=== PATIENT | male | born 1945 | race American Indian/Alaskan Native ===

== ENCOUNTER 2017-10-01 18:57 | Emergency (ER) | payer MEDICARE ==
--- NOTE | 2017-10-01 20:29 | Emergency Department Report ---
ED Fall HPI - General Chief Complaint: Fall Stated Complaint: FALL Time Seen by Provider: 10/01/17 20:22 Source: EMS, old records reviewed Mode of arrival: Stretcher - History of Present Illness Initial Comments: Patient is 71 years old male, [facility] patient with history of dementia, CVA , diabetes and seizure. [facility] from the [facility] for evaluation for a fall that happened just prior to admission to the ER. Per [facility] staff patient fell out of a wheelchair and hit his head. Patient denied any loss of consciousness, no other injuries. Patient denied any new weakness numbness or tingling sensation. MD Complaint: fall -: Sudden Fall From: wheelchair When Fall Occurred: just prior to arrival Fall Witnessed: yes, by living facility s Place Fall Occurred: [facility] Loss of Consciousness: none Prolonged Down Time?: no Symptoms Prior to Fall: none Location: head Severity scale (0 -10): 3 Quality: dull Context: tripped/slipped Associated Symptoms: denies. denies: headache, neck pain, numbness, weakness, chest paint, shortness of breath, abdominal pain, hematuria, unable to walk, lightheaded, vertigo, confusion, other - Related Data Home Medications Medication Instructions Recorded Confirmed Last Taken Haloperidol 5 mg PO QDAY 09/06/14 10/01/17 Unknown OLANzapine [ZyPREXA] 5 mg PO HS 09/06/14 10/01/17 Unknown ALBUTEROL NEB's [Proventil 0.083% 2.5 mg IH Q6H PRN 08/27/17 10/01/17 Unknown NEBS] Amantadine HCl [Amantadine] 100 mg PO BID 08/27/17 10/01/17 Unknown Aspirin [Aspirin BABY CHEW TAB] 81 mg PO QDAY 08/27/17 10/01/17 Unknown Benazepril HCl [Lotensin] 20 mg PO Q12H 08/27/17 10/01/17 Unknown Calcium Carbonate/Vitamin D3 1 each PO DAILY 08/27/17 10/01/17 Unknown [Calcium 600-Vit D3 400 Tablet] Docusate Sodium [Colace CAP] 100 mg PO BID 08/27/17 10/01/17 Unknown Donepezil [Aricept] 10 mg PO HS 08/27/17 10/01/17 Unknown PHENobarbital [Phenobarbital] 97.2 mg PO QDAY 08/27/17 10/01/17 Unknown Phenytoin Sodium Extended 200 mg PO Q12H 08/27/17 10/01/17 Unknown [Dilantin] Pravastatin Sodium [Pravastatin] 10 mg PO QHS 08/27/17 10/01/17 Unknown Divalproex ER [DepaKOTE ER] 250 mg PO BID 10/01/17 10/01/17 Unknown Insulin Aspart [NovoLOG Flexpen] See Protocol SUB-Q ACHS 10/01/17 10/01/17 Unknown Ipratropium/Albuterol Sulfate 1 ampul IH Q6HR PRN 10/01/17 10/01/17 Unknown [DUONEB *Not for PRN Use*] Previous Rx's Medication Instructions Recorded Last Taken Type Clindamycin [Clindamycin CAP] 300 mg PO QID #28 capsule 09/05/17 Unknown Rx Insulin NPH/Regular [NovoLIN 70/30] 25 unit SUB-Q BIDDIAB units 09/05/17 Unknown Rx Allergies Allergy/AdvReac Type Severity Reaction Status Date / Time SALAMI AdvReac Unknown Uncoded 09/06/14 12:29 ED Review of Systems ROS: Stated complaint: FALL Other details as noted in HPI Comment: All other systems reviewed and negative Constitutional: denies: fever, malaise Eyes: denies: eye pain ENT: denies: ear pain, dental pain Respiratory: denies: cough, orthopnea, shortness of breath, SOB with exertion, SOB at rest, stridor Cardiovascular: denies: chest pain, palpitations, dyspnea on exertion, orthopnea Gastrointestinal: denies: abdominal pain, nausea, vomiting, diarrhea, constipation, hematemesis, melena, hematochezia Genitourinary: denies: urgency, dysuria, frequency, hematuria, discharge Musculoskeletal: denies: joint swelling Neurological: denies: headache, weakness, numbness, paresthesias, confusion ED Past Medical Hx - Past Medical History Previous Medical History?: Yes Hx CVA: Yes Hx Diabetes: Yes (IDDM 12/26/12;) Hx Deep Vein Thrombosis: No Hx GERD: Yes Hx Renal Disease: Yes (acute kidney failure) Hx Seizures: Yes ("CONVULSIONS" 11/06/06;) Hx Dementia: Yes (W/BEHAVIORAL DISTURBANCES 03/10/10;) Additional medical history: Unspecified open wound, left lower leg, long-term use of aspirin, constipation, hypertension, seizures, nicotine dependence, Alzheimer's disease, cellulitis of left lower limb, peripheral vascular disease , hyperlipidemia and Parkinson's disease, - Surgical History Hx Pacemaker: No Hx Internal Defibrillator: No - Social History Smoking Status: Unknown if ever smoked Substance Use Type: None - Medications Home Medications: Home Medications Medication Instructions Recorded Confirmed Last Taken Type Haloperidol 5 mg PO QDAY 09/06/14 10/01/17 Unknown History OLANzapine [ZyPREXA] 5 mg PO HS 09/06/14 10/01/17 Unknown History ALBUTEROL NEB's [Proventil 0.083% 2.5 mg IH Q6H PRN 08/27/17 10/01/17 Unknown History NEBS] Amantadine HCl [Amantadine] 100 mg PO BID 08/27/17 10/01/17 Unknown History Aspirin [Aspirin BABY CHEW TAB] 81 mg PO QDAY 08/27/17 10/01/17 Unknown History Benazepril HCl [Lotensin] 20 mg PO Q12H 08/27/17 10/01/17 Unknown History Calcium Carbonate/Vitamin D3 1 each PO DAILY 08/27/17 10/01/17 Unknown History [Calcium 600-Vit D3 400 Tablet] Docusate Sodium [Colace CAP] 100 mg PO BID 08/27/17 10/01/17 Unknown History Donepezil [Aricept] 10 mg PO HS 08/27/17 10/01/17 Unknown History PHENobarbital [Phenobarbital] 97.2 mg PO QDAY 08/27/17 10/01/17 Unknown History Phenytoin Sodium Extended 200 mg PO Q12H 08/27/17 10/01/17 Unknown History [Dilantin] Pravastatin Sodium [Pravastatin] 10 mg PO QHS 08/27/17 10/01/17 Unknown History Clindamycin [Clindamycin CAP] 300 mg PO QID #28 capsule 09/05/17 10/01/17 Unknown Rx Insulin NPH/Regular [NovoLIN 70/30] 25 unit SUB-Q BIDDIAB units 09/05/17 Unknown Rx Divalproex ER [DepaKOTE ER] 250 mg PO BID 10/01/17 10/01/17 Unknown History Insulin Aspart [NovoLOG Flexpen] See Protocol SUB-Q ACHS 10/01/17 10/01/17 Unknown History Ipratropium/Albuterol Sulfate 1 ampul IH Q6HR PRN 10/01/17 10/01/17 Unknown History [DUONEB *Not for PRN Use*] ED Physical Exam - General Limitations: No Limitations, Other General appearance: alert - Head Head exam: Present: other (abrasion to the forehead) - Eye Eye exam: Present: normal appearance, PERRL - ENT ENT exam: Present: normal exam, normal orophraynx, mucous membranes moist - Neck Neck exam: Present: normal inspection, full ROM. Absent: tenderness, meningismus, lymphadenopathy, thyromegaly - Respiratory Respiratory exam: Present: normal lung sounds bilaterally. Absent: respiratory distress - Cardiovascular Cardiovascular Exam: Present: regular rate, normal rhythm, normal heart sounds - GI/Abdominal GI/Abdominal exam: Present: soft, normal bowel sounds. Absent: distended, tenderness, guarding, rebound, rigid, organomegaly, mass, bruit, pulsatile mass , hernia - Extremities Exam Extremities exam: Present: normal inspection, full ROM, normal capillary refill - Back Exam Back exam: Present: normal inspection, full ROM. Absent: tenderness, CVA tenderness (R), CVA tenderness (L), muscle spasm, paraspinal tenderness, vertebral tenderness - Neurological Exam Neurological exam: Present: alert, oriented X3, CN II-XII intact - Skin Skin exam: Present: warm, intact, normal color ED Course Vital Signs 10/01/17 10/01/17 10/01/17 20:03 20:04 20:05 Temperature 98.4 F Pulse Rate 100 H Respiratory 118 H 18 Rate Blood Pressure Blood Pressure 231/171 [Left] O2 Sat by Pulse 99 96 99 Oximetry 10/01/17 10/01/17 10/01/17 20:06 20:08 20:10 Temperature Pulse Rate 99 H 96 H Respiratory 19 20 Rate Blood Pressure 231/171 129/78 129/78 Blood Pressure [Left] O2 Sat by Pulse 96 95 Oximetry 10/01/17 10/01/17 10/01/17 20:12 20:14 20:16 Temperature Pulse Rate 103 H 97 H 97 H Respiratory 22 20 18 Rate Blood Pressure 129/78 129/78 129/78 Blood Pressure [Left] O2 Sat by Pulse 96 96 95 Oximetry 02/10/01/17 10/01/17 20:18 20:20 20:22 Temperature Pulse Rate 97 H 112 H 98 H Respiratory 19 18 18 Rate Blood Pressure 129/78 129/78 129/78 Blood Pressure [Left] O2 Sat by Pulse 95 96 98 Oximetry 10/01/17 10/01/17 10/01/17 20:24 20:26 20:28 Temperature Pulse Rate 98 H 95 H 96 H Respiratory 18 19 17 Rate Blood Pressure 129/78 129/78 129/78 Blood Pressure [Left] O2 Sat by Pulse 96 95 97 Oximetry 10/01/17 10/01/17 10/01/17 20:30 20:31 20:50 Temperature Pulse Rate 95 H 98 H Respiratory 21 21 Rate Blood Pressure 132/78 132/78 132/78 Blood Pressure [Left] O2 Sat by Pulse 95 97 97 Oximetry 10/01/17 10/01/17 10/01/17 20:52 20:54 20:56 Temperature Pulse Rate Respiratory Rate Blood Pressure 132/78 132/78 132/78 Blood Pressure [Left] O2 Sat by Pulse 96 96 98 Oximetry 10/01/17 10/01/17 10/01/17 20:58 21:00 21:02 Temperature Pulse Rate Respiratory Rate Blood Pressure 132/78 122/82 122/82 Blood Pressure [Left] O2 Sat by Pulse 97 95 97 Oximetry 10/01/17 10/01/17 21:04 21:06 Temperature Pulse Rate Respiratory Rate Blood Pressure 122/82 122/82 Blood Pressure [Left] O2 Sat by Pulse 96 97 Oximetry - Reevaluation(s) Reevaluation #1: 10/01/17 21:54 Patient remained asymptomatic in the ER. Patient still denying any chest pain, headache or shortness of breath. ED Medical Decision Making - Radiology Data Radiology results: report reviewed Referring Physician: GENARO DOHERTY Patient Name: EMMANUEL TABARES Date of : 1945 Sex: Male Report Date: 2017-10-01 Report Status: Finalized Findings [facility] [address] [place] [address] Cat Scan Report Signed Patient: EMMANUEL TABARES MR#: [id number] : 1945 Acct:[id number] Age/Sex: 71 / M ADM Date: 10/01/17 Loc: ED Attending Dr: Ordering Physician: GENARO DOHERTY Date of Service: 10/01/17 Procedure(s): CT head/brain wo con Accession Number(s): [id number] cc: GENARO DOHERTY FINAL REPORT PROCEDURE: CT HEAD/BRAIN WO CON TECHNIQUE: Computerized tomography of the head was performed without contrast material. HISTORY: head injury COMPARISON: No prior studies are available for comparison. FINDINGS: Skull and scalp: Normal. Paranasal sinuses: Mucosal thickening is noted involving the right maxillary sinus.. Ventricles and subarachnoid spaces: Are prominent consistent with cerebral atrophy appropriate for patient's age.. Cerebrum: No evidence of hemorrhage, acute infarction or mass . Cerebellum and brainstem: No evidence of hemorrhage, acute infarction or mass. Vasculature: Normal. Comments: None. IMPRESSION: No acute intracranial abnormality Right maxillary sinusitis. Transcribed By: [facility] Dictated By: STACEY POTTS Electronically Authenticated By: STACEY POTTS Signed Date/Time: 10/01/172130 DD/ 30 TD/TT: 10/01/172130 Critical care attestation.: If time is entered above; I have spent that time in minutes in the direct care of this critically ill patient, excluding procedure time. ED Disposition Clinical Impression: Head injury, Fall Disposition: DC-01 TO HOME OR SELFCARE Is pt being admited?: No Condition: Stable Instructions: Minor Head Injury (ED), Fall Prevention (ED) Referrals: PRIMARY CARE, [Primary Care Provider] - 3-5 Days
--- NOTE | 2017-10-01 21:35 | Cat Scan Report ---
FINAL REPORT PROCEDURE: CT HEAD/BRAIN WO CON TECHNIQUE: Computerized tomography of the head was performed without contrast material. HISTORY: head injury COMPARISON: No prior studies are available for comparison. FINDINGS: Skull and scalp: Normal. Paranasal sinuses: Mucosal thickening is noted involving the right maxillary sinus.. Ventricles and subarachnoid spaces: Are prominent consistent with cerebral atrophy appropriate for patient's age.. Cerebrum: No evidence of hemorrhage, acute infarction or mass . Cerebellum and brainstem: No evidence of hemorrhage, acute infarction or mass. Vasculature: Normal. Comments: None. IMPRESSION: No acute intracranial abnormality Right maxillary sinusitis.
[2017-10-01 22:48] VITALS: BP 144/81
== END 2017-10-01 23:11 | disposition home or self-care (01) ==
LOC: ED 18:57
DX: S09.90XA Unspecified injury of head, initial encounter (principal); E11.9 Type 2 diabetes mellitus without complications; K21.9 Gastro-esophageal reflux disease without esophagitis; W01.198A Fall on same level from slipping, tripping and stumbling with subsequent striking against other object, initial encounter; Y93.89 Activity, other specified; Y92.89 Other specified places as the place of occurrence of the external cause; Y99.8 Other external cause status
CPT/HCPCS: 70450; 99284

== ENCOUNTER 2018-10-17 22:19 | Inpatient (IN) | payer MEDICARE ==
[2018-10-17] MEDS ORDERED: NACL 0.9% 1000 ML 1,000 ML IV ONE (22:37)
--- NOTE | 2018-10-17 22:48 | Emergency Department Report ---
ED Altered Mental Status HPI - General Stated Complaint: AMS Time Seen by Provider: 10/17/18 22:42 - History of Present Illness Initial Comments: Mr. Turpin is a 72-year-old male who presents from [facility] for combative behavior. According to 1013 filled out by longterm staff member, Mr. Turpin was fist fighting, swinging at others. He was threatening to kill persons. Mr. Turpin is unable to give much history due to dementia. He denies any desire to harm himself or others. He "feels good". He denies pain discomfort. Mr. Turpin has a history of dementia, iron deficiency anemia, peripheral vascular disease, Parkinson's disease. Heart failure, conversion disorder with seizures, vitamin deficiency. Full Code EMS administered Haldol, Hydramine and Versed for severe agitation. Medications include Depakote amantadine metformin Colace aspirin calcium vitamin D pentobarbital Nasonex Haldol Remeron donepezil pravastatin Zyprexa and insulin sliding scale Avapro albuterol Complaint: other (agitation combative behavior) -: Gradual, This evening Severity: moderate Consistency of Symptoms: getting worse Context: unknown Associated Symptoms: denies other symptoms Treatments Prior to Arrival: other pre-hosp med (Versed Haldol Benadryl) - Related Data Home Medications Medication Instructions Recorded Confirmed Last Taken Haloperidol 5 mg PO QDAY 09/06/14 10/01/17 Unknown OLANzapine [ZyPREXA] 5 mg PO HS 09/06/14 10/01/17 Unknown ALBUTEROL NEB's [Proventil 0.083% 2.5 mg IH Q6H PRN 08/27/17 10/01/17 Unknown NEBS] Amantadine HCl [Amantadine] 100 mg PO BID 08/27/17 10/01/17 Unknown Aspirin [Aspirin BABY CHEW TAB] 81 mg PO QDAY 08/27/17 10/01/17 Unknown Benazepril HCl [Lotensin] 20 mg PO Q12H 08/27/17 10/01/17 Unknown Calcium Carbonate/Vitamin D3 1 each PO DAILY 08/27/17 10/01/17 Unknown [Calcium 600-Vit D3 400 Tablet] Docusate Sodium [Colace CAP] 100 mg PO BID 08/27/17 10/01/17 Unknown Donepezil [Aricept] 10 mg PO HS 08/27/17 10/01/17 Unknown PHENobarbital [Phenobarbital] 97.2 mg PO QDAY 08/27/17 10/01/17 Unknown Phenytoin Sodium Extended 200 mg PO Q12H 08/27/17 10/01/17 Unknown [Dilantin] Pravastatin Sodium [Pravastatin] 10 mg PO QHS 08/27/17 10/01/17 Unknown Divalproex ER [DepaKOTE ER] 250 mg PO BID 10/01/17 10/01/17 Unknown Insulin Aspart [NovoLOG Flexpen] See Protocol SUB-Q ACHS 10/01/17 10/01/17 Unknown Ipratropium/Albuterol Sulfate 1 ampul IH Q6HR PRN 10/01/17 10/01/17 Unknown [DUONEB *Not for PRN Use*] Previous Rx's Medication Instructions Recorded Last Taken Type Clindamycin [Clindamycin CAP] 300 mg PO QID #28 capsule 09/05/17 Unknown Rx Insulin NPH/Regular [NovoLIN 70/30] 25 unit SUB-Q BIDDIAB units 09/05/17 Unknown Rx Allergies Allergy/AdvReac Type Severity Reaction Status Date / Time SALAMI AdvReac Unknown Uncoded 09/06/14 12:29 ED Review of Systems ROS: Stated complaint: AMS Other details as noted in HPI Comment: Unobtainable due to pts medical conditions (dementia) ED Past Medical Hx - Past Medical History Previous Medical History?: Yes Hx CVA: Yes Hx Diabetes: Yes (IDDM 12/26/12;) Hx Deep Vein Thrombosis: No Hx GERD: Yes Hx Renal Disease: Yes (acute kidney failure) Hx Seizures: Yes ("CONVULSIONS" 11/06/06;) Hx Dementia: Yes (W/BEHAVIORAL DISTURBANCES 03/10/10;) Additional medical history: Unspecified open wound, left lower leg, long-term use of aspirin, constipation, hypertension, seizures, nicotine dependence, Alzheimer's disease, cellulitis of left lower limb, peripheral vascular disease, hyperlipidemia and Parkinson's disease, - Surgical History Hx Pacemaker: No Hx Internal Defibrillator: No - Social History Smoking Status: Unknown if ever smoked Substance Use Type: None - Medications Home Medications: Home Medications Medication Instructions Recorded Confirmed Last Taken Type Haloperidol 5 mg PO QDAY 09/06/14 10/01/17 Unknown History OLANzapine [ZyPREXA] 5 mg PO HS 09/06/14 10/01/17 Unknown History ALBUTEROL NEB's [Proventil 0.083% 2.5 mg IH Q6H PRN 08/27/17 10/01/17 Unknown History NEBS] Amantadine HCl [Amantadine] 100 mg PO BID 08/27/17 10/01/17 Unknown History Aspirin [Aspirin BABY CHEW TAB] 81 mg PO QDAY 08/27/17 10/01/17 Unknown History Benazepril HCl [Lotensin] 20 mg PO Q12H 08/27/17 10/01/17 Unknown History Calcium Carbonate/Vitamin D3 1 each PO DAILY 08/27/17 10/01/17 Unknown History [Calcium 600-Vit D3 400 Tablet] Docusate Sodium [Colace CAP] 100 mg PO BID 08/27/17 10/01/17 Unknown History Donepezil [Aricept] 10 mg PO HS 08/27/17 10/01/17 Unknown History PHENobarbital [Phenobarbital] 97.2 mg PO QDAY 08/27/17 10/01/17 Unknown History Phenytoin Sodium Extended 200 mg PO Q12H 08/27/17 10/01/17 Unknown History [Dilantin] Pravastatin Sodium [Pravastatin] 10 mg PO QHS 08/27/17 10/01/17 Unknown History Clindamycin [Clindamycin CAP] 300 mg PO QID #28 capsule 09/05/17 10/01/17 Unknown Rx Insulin NPH/Regular [NovoLIN 70/30] 25 unit SUB-Q BIDDIAB units 09/05/17 10/01/17 Unknown Rx Divalproex ER [DepaKOTE ER] 250 mg PO BID 10/01/17 10/01/17 Unknown History Insulin Aspart [NovoLOG Flexpen] See Protocol SUB-Q ACHS 10/01/17 10/01/17 Unknown History Ipratropium/Albuterol Sulfate 1 ampul IH Q6HR PRN 10/01/17 10/01/17 Unknown History [DUONEB *Not for PRN Use*] ED Physical Exam - General General appearance: alert, in no apparent distress - Head Head exam: Present: atraumatic, normocephalic - Eye Eye exam: Present: normal appearance - ENT ENT exam: Present: mucous membranes moist - Neck Neck exam: Present: normal inspection, full ROM. Absent: tenderness, meningismus - Respiratory Respiratory exam: Present: normal lung sounds bilaterally. Absent: respiratory distress, wheezes, rales, rhonchi - Cardiovascular Cardiovascular Exam: Present: normal rhythm, tachycardia. Absent: systolic murmur, diastolic murmur, rubs, gallop - GI/Abdominal GI/Abdominal exam: Present: soft, normal bowel sounds. Absent: distended, tenderness, guarding, rebound - Rectal Rectal exam: Present: deferred - Extremities Exam Extremities exam: Present: normal inspection - Back Exam Back exam: Present: normal inspection - Neurological Exam Neurological exam: Present: alert, other (oriented to name only unclear of the or situation or location) - Psychiatric Psychiatric exam: Present: normal affect, normal mood - Skin Skin exam: Present: warm, dry, intact, normal color. Absent: rash ED Course Vital Signs 10/17/18 22:45 Temperature 98.3 F Pulse Rate 141 H Respiratory 21 Rate Blood Pressure 110/62 O2 Sat by Pulse 97 Oximetry - Lab Data Result diagrams: 10/17/18 22:47 10/17/18 22:47 Lab Results 10/17/18 10/17/18 10/17/18 Range/Units 22:37 22:47 22:47 WBC 5.5 (4.5-11.0) K/mm3 RBC 5.04 H (3.65-5.03) M/mm3 Hgb 15.9 H (11.8-15.2) gm/dl Hct 47.0 H (35.5-45.6) % MCV 93 (84-94) fl MCH 32 (28-32) pg MCHC 34 (32-34) % RDW 15.2 (13.2-15.2) % Plt Count 124 L (140-440) K/mm3 Lymph % (Auto) 9.9 L (13.4-35.0) % [place] % (Auto) 4.9 (0.0-7.3) % Eos % (Auto) 0.1 (0.0-4.3) % Baso % (Auto) 2.1 H (0.0-1.8) % Lymph # 0.5 L (1.2-5.4) K/mm3 [place] # 0.3 (0.0-0.8) K/mm3 Eos # 0.0 (0.0-0.4) K/mm3 Baso # 0.1 (0.0-0.1) K/mm3 Seg Neutrophils % 83.0 H (40.0-70.0) % Seg Neutrophils # 4.5 (1.8-7.7) K/mm3 Sodium 139 (137-145) mmol/L Potassium 3.9 (3.6-5.0) mmol/L Chloride 99.3 (98-107) mmol/L Carbon Dioxide 23 (22-30) mmol/L Anion Gap 21 mmol/L BUN 14 (9-20) mg/dL Creatinine 1.0 (0.8-1.5) mg/dL Estimated GFR > 60 ml/min BUN/Creatinine Ratio 14 % Glucose 158 H (75-100) mg/dL POC Glucose 187 H (70-105) Lactic Acid (0.7-2.0) mmol/L Calcium 9.3 (8.4-10.2) mg/dL Total Bilirubin 0.20 (0.1-1.2) mg/dL AST 13 (5-40) units/L ALT 13 (7-56) units/L Alkaline Phosphatase 52 (35-129) units/L Ammonia (25-60) umol/L Total Creatine Kinase 325 H (55-170) units/L Troponin T < 0.010 (0.00-0.029) ng/mL Total Protein 6.8 (6.3-8.2) g/dL Albumin 4.1 (3.9-5) g/dL Albumin/Globulin Ratio 1.5 % TSH (0.270-4.200) mlU/mL Salicylates (2.8-20.0) mg/dL Acetaminophen (10.0-30.0) ug/mL Plasma/Serum Alcohol (0-0.07) % 10/17/18 10/17/18 10/17/18 Range/Units 22:47 22:47 22:47 WBC (4.5-11.0) K/mm3 RBC (3.65-5.03) M/mm3 Hgb (11.8-15.2) gm/dl Hct (35.5-45.6) % MCV (84-94) fl MCH (28-32) pg MCHC (32-34) % RDW (13.2-15.2) % Plt Count (140-440) K/mm3 Lymph % (Auto) (13.4-35.0) % [place] % (Auto) (0.0-7.3) % Eos % (Auto) (0.0-4.3) % Baso % (Auto) (0.0-1.8) % Lymph # (1.2-5.4) K/mm3 [place] # (0.0-0.8) K/mm3 Eos # (0.0-0.4) K/mm3 Baso # (0.0-0.1) K/mm3 Seg Neutrophils % (40.0-70.0) % Seg Neutrophils # (1.8-7.7) K/mm3 Sodium (137-145) mmol/L Potassium (3.6-5.0) mmol/L Chloride (98-107) mmol/L Carbon Dioxide (22-30) mmol/L Anion Gap mmol/L BUN (9-20) mg/dL Creatinine (0.8-1.5) mg/dL Estimated GFR ml/min BUN/Creatinine Ratio % Glucose (75-100) mg/dL POC Glucose (70-105) Lactic Acid 3.80 H* (0.7-2.0) mmol/L Calcium (8.4-10.2) mg/dL Total Bilirubin (0.1-1.2) mg/dL AST (5-40) units/L ALT (7-56) units/L Alkaline Phosphatase (35-129) units/L Ammonia 51.0 (25-60) umol/L Total Creatine Kinase (55-170) units/L Troponin T (0.00-0.029) ng/mL Total Protein (6.3-8.2) g/dL Albumin (3.9-5) g/dL Albumin/Globulin Ratio % TSH 2.020 (0.270-4.200) mlU/mL Salicylates (2.8-20.0) mg/dL Acetaminophen (10.0-30.0) ug/mL Plasma/Serum Alcohol (0-0.07) % 10/17/18 10/17/18 10/17/18 Range/Units 22:47 22:47 22:47 WBC (4.5-11.0) K/mm3 RBC (3.65-5.03) M/mm3 Hgb (11.8-15.2) gm/dl Hct (35.5-45.6) % MCV (84-94) fl MCH (28-32) pg MCHC (32-34) % RDW (13.2-15.2) % Plt Count (140-440) K/mm3 Lymph % (Auto) (13.4-35.0) % [place] % (Auto) (0.0-7.3) % Eos % (Auto) (0.0-4.3) % Baso % (Auto) (0.0-1.8) % Lymph # (1.2-5.4) K/mm3 [place] # (0.0-0.8) K/mm3 Eos # (0.0-0.4) K/mm3 Baso # (0.0-0.1) K/mm3 Seg Neutrophils % (40.0-70.0) % Seg Neutrophils # (1.8-7.7) K/mm3 Sodium (137-145) mmol/L Potassium (3.6-5.0) mmol/L Chloride (98-107) mmol/L Carbon Dioxide (22-30) mmol/L Anion Gap mmol/L BUN (9-20) mg/dL Creatinine (0.8-1.5) mg/dL Estimated GFR ml/min BUN/Creatinine Ratio % Glucose (75-100) mg/dL POC Glucose (70-105) Lactic Acid (0.7-2.0) mmol/L Calcium (8.4-10.2) mg/dL Total Bilirubin (0.1-1.2) mg/dL AST (5-40) units/L ALT (7-56) units/L Alkaline Phosphatase (35-129) units/L Ammonia (25-60) umol/L Total Creatine Kinase (55-170) units/L Troponin T (0.00-0.029) ng/mL Total Protein (6.3-8.2) g/dL Albumin (3.9-5) g/dL Albumin/Globulin Ratio % TSH (0.270-4.200) mlU/mL Salicylates < 0.3 L (2.8-20.0) mg/dL Acetaminophen < 5.0 L (10.0-30.0) ug/mL Plasma/Serum Alcohol < 0.01 (0-0.07) % 10/18/18 Range/Units 00:35 WBC (4.5-11.0) K/mm3 RBC (3.65-5.03) M/mm3 Hgb (11.8-15.2) gm/dl Hct (35.5-45.6) % MCV (84-94) fl MCH (28-32) pg MCHC (32-34) % RDW (13.2-15.2) % Plt Count (140-440) K/mm3 Lymph % (Auto) (13.4-35.0) % [place] % (Auto) (0.0-7.3) % Eos % (Auto) (0.0-4.3) % Baso % (Auto) (0.0-1.8) % Lymph # (1.2-5.4) K/mm3 [place] # (0.0-0.8) K/mm3 Eos # (0.0-0.4) K/mm3 Baso # (0.0-0.1) K/mm3 Seg Neutrophils % (40.0-70.0) % Seg Neutrophils # (1.8-7.7) K/mm3 Sodium (137-145) mmol/L Potassium (3.6-5.0) mmol/L Chloride (98-107) mmol/L Carbon Dioxide (22-30) mmol/L Anion Gap mmol/L BUN (9-20) mg/dL Creatinine (0.8-1.5) mg/dL Estimated GFR ml/min BUN/Creatinine Ratio % Glucose (75-100) mg/dL POC Glucose (70-105) Lactic Acid 4.60 H* (0.7-2.0) mmol/L Calcium (8.4-10.2) mg/dL Total Bilirubin (0.1-1.2) mg/dL AST (5-40) units/L ALT (7-56) units/L Alkaline Phosphatase (35-129) units/L Ammonia (25-60) umol/L Total Creatine Kinase (55-170) units/L Troponin T (0.00-0.029) ng/mL Total Protein (6.3-8.2) g/dL Albumin (3.9-5) g/dL Albumin/Globulin Ratio % TSH (0.270-4.200) mlU/mL Salicylates (2.8-20.0) mg/dL Acetaminophen (10.0-30.0) ug/mL Plasma/Serum Alcohol (0-0.07) % 10/17/18 22:51 EKG obtained 2236 Sinus tachycardia 130 beats a minute normal axis prolonged QT interval and nonspecific T wave pattern no significant ST elevation - Medical Decision Making Upon arrival, Mr. Turpin was awake and semicooperative after receiving chemical sedation. Tachycardia noted. He then became agitated and combative toward staff requiring further chemical restraint. Lactic acidosis presents without fever or elevated white count, possibly due to metformin use. However, Tachycardia has been persistent, concern for sepsis. Concern for delirium due to medication. Critical Care Time: Yes Critical care time in (mins) excluding proc time.: 40 Critical care attestation.: If time is entered above; I have spent that time in minutes in the direct care of this critically ill patient, excluding procedure time. 40 minutes of critical care time excluding procedures were used in the care of the patient. Patient required multiple assessments and interventions. I reviewed the electronic medical record. I spoke with consultants involved in the care of the patient. I provided online medical control to EMS prior to arrival. I did approve chemical restraint. ED Disposition Clinical Impression: Acute metabolic encephalopathy, SIRS (systemic inflammatory response syndrome), Dementia with behavioral disturbance Disposition: OP ADMIT IP TO THIS HOSP Is pt being admited?: Yes Does the pt Need Aspirin: No Condition: Stable
[2018-10-17 23:09] LABS: Basophils # (Auto) 0.1 K/mm3 (0.0-0.1); Basophils % (Auto) 2.1 % (0.0-1.8); Eosinophils % (Auto) 0.1 % (0.0-4.3); Hemoglobin 15.9 gm/dl (11.8-15.2); Lymphocytes # (Auto) 0.5 K/mm3 (1.2-5.4); Lymphocytes % (Auto) 9.9 % (13.4-35.0); Mean Corpuscular HGB Conc 34 % (32-34); Mean Corpuscular Volume 93 fl (84-94); Monocytes # (Auto) 0.3 K/mm3 (0.0-0.8); Monocytes % (Auto) 4.9 % (0.0-7.3); Platelet Count 124 K/mm3 (140-440); Red Blood Count 5.04 M/mm3 (3.65-5.03); Red Cell Distribution Width 15.2 % (13.2-15.2)
--- NOTE | 2018-10-17 23:18 | XRay Report ---
PROCEDURE: XR CHEST 1V AP TECHNIQUE: Chest radiograph single view. HISTORY: Altered Mental Status COMPARISONS: None . FINDINGS: Heart: Normal. Mediastinum/Vessels: Normal. Lungs/Pleural space: Lungs are hyperinflated. There are no infiltrates or mass lesions. Pleural spac es are clear.. Bony thorax: No acute osseous abnormality. Life support devices: None. IMPRESSION: COPD No acute pulmonary process. This document is electronically signed by Sebastian Campos MD., October 17 2018 11:15:54 PM ET
[2018-10-17 23:33] LABS: Alanine Aminotransferase 13 units/L (7-56); Albumin 4.1 g/dL (3.9-5); BUN/Creatinine Ratio 14; Blood Urea Nitrogen 14 mg/dL (9-20); Calcium 9.3 mg/dL (8.4-10.2); Hemolysis Index 35
[2018-10-18] MEDS ORDERED: HALDOL IM ONE (00:30)
[2018-10-18] MEDS ORDERED: ATIVAN IM STA (00:30)
[2018-10-18] MEDS ORDERED: HALDOL ONE (00:32)
[2018-10-18] MEDS ORDERED: NACL 0.9% 1000 ML IV ONE (00:32)
--- NOTE | 2018-10-18 00:39 | Cat Scan Report ---
PROCEDURE: CT HEAD/BRAIN WO CON TECHNIQUE: Computerized tomography of the head was performed without contrast material. CT DOSE LENGTH PRODUCT: mGycm HISTORY: Altered Mental Status COMPARISONS: None . FINDINGS: Skull and scalp: Normal . Paranasal sinuses: Normal . Ventricles and subarachnoid spaces: There is moderate central and cortical atrophy. There is no hydr ocephalus or asymmetry. . Cerebrum: No evidence of hemorrhage, acute infarction or mass . Cerebellum and brainstem: No evidence of hemorrhage, acute infarction or mass . Vasculature: Normal . IMPRESSION: There is no acute intracranial abnormality. . This document is electronically signed by Sergio Cloud MD., October 18 2018 12:36:25 AM ET
[2018-10-18] MEDS ORDERED: ATIVAN IV ONE (00:44)
[2018-10-18 04:48] LABS: Amphetamine Screen,Urine PRESUMPTIVE NEGATIVE; Cannabinoid Screen,Urine PRESUMPTIVE NEGATIVE; Cocaine Screen,Urine PRESUMPTIVE NEGATIVE; Methadone Screen,Urine PRESUMPTIVE NEGATIVE; Opiate Screen,Urine PRESUMPTIVE NEGATIVE
[2018-10-18] MEDS ORDERED: D50W (25GM) Syringe IV PRN (04:52)
[2018-10-18] MEDS ORDERED: PROVENTIL IH PRN (04:54)
[2018-10-18] MEDS ORDERED: NON-FORMULARY (Benazepril Hcl [Lotensin] 20 MG) PO SCH (05:00)
[2018-10-18] MEDS ORDERED: ZOFRAN IV PRN (05:00)
[2018-10-18] MEDS ORDERED: TYLENOL PO PRN (05:00)
[2018-10-18 05:02] LABS: Bilirubin,Urine NEG (Negative); Blood,Urine NEG (Negative); Color,Urine Straw (Yellow); Mucus,Urine FEW /HPF; Protein,Urine <15 mg/dL mg/dL (Negative); RBC,Urine < 1.0 /HPF (0.0-6.0); Urobilinogen,Urine < 2.0 mg/dL (<2.0); WBC,Urine < 1.0 /HPF (0.0-6.0)
[2018-10-18 05:28] LABS: Benzodiazepines Screen,Urine PRESUMPTIVE POSITIVE
[2018-10-18] MEDS: NACL 0.9% 1000 ML 1,000 ML IV SCH (05:30)
[2018-10-18] MEDS: HEPARIN SUB-Q SCH ×3 (05:30→22:55)
--- NOTE | 2018-10-18 05:30 | History and Physical Report ---
CHIEF COMPLAINT: Change in mental status. HISTORY OF PRESENT ILLNESS: The patient is a 72-year-old male brought from [facility] because of change in mental status. The patient was noted to be combative. [facility] filled out an [facility] confinement form (1013 Form) because the patient was fist fighting, swinging at other members of the jail and threatening to kill people. The patient could not give proper history because of his past history of dementia. There is no history of fever or chills. No history of chest pain and no history of nausea or vomiting and the patient only says that he feels good when questioned. PAST MEDICAL HISTORY: Pertinent for cerebrovascular accident, diabetes mellitus, gastroesophageal reflux disease, renal insufficiency, seizure disorder, dementia, multiple wounds in the lower extremities, hypertension, nicotine dependence, Alzheimer's disease, peripheral vascular disease, hyperlipidemia, Parkinson's disease. PAST SURGICAL HISTORY: Unremarkable. FAMILY HISTORY: Noncontributory. SOCIAL HISTORY: [facility] the jail. Does not smoke, does not drink alcohol and does not use illicit drug. MEDICATIONS: The patient's medication includes albuterol nebulizer 2.5 mg every 6 hours as needed for shortness of breath. Also, the patient is on amantadine 100 mg by mouth twice daily, aspirin 81 mg daily, benazepril hydrochloride, calcium carbonate, clindamycin 300 mg by mouth t.i.d., Depakote 250 mg by mouth twice daily. Also, the patient is on docusate sodium 100 mg by mouth twice daily. ALLERGIES: THE PATIENT IS ALLERGIC TO SALAMI. REVIEW OF SYSTEMS: CONSTITUTIONAL: There is no fever, no chills, no diaphoresis. HEENT: There is no headache or sore throat. CARDIOVASCULAR: There is no chest pain or orthopnea. RESPIRATORY SYSTEM: There is no shortness of breath or cough. GASTROINTESTINAL SYSTEM: There is no nausea, no vomiting, no abdominal pain, diarrhea or constipation. NEUROLOGICAL: There is no numbness, no dizziness, change in mental status noted. MUSCULOSKELETAL: There is no joint pain or swelling. DERMATOLOGICAL SYSTEM: There is no skin rash or itching. GENITOURINARY SYSTEM: There is no dysuria, hematuria or flank pain. Rest of system review is normal. PHYSICAL EXAMINATION: GENERAL: At the time of exam, the patient was found to be alert, oriented to person only, and not in acute distress. VITAL SIGNS: At the initial time of presentation show temperature of 98.3 degrees Fahrenheit, pulse of 141, respirations 21, blood pressure 110/62, O2 sat of 97% on room air. HEENT: Pupils to be equal, round, reactive to light and accommodating. Extraocular muscles are intact. NECK: Supple with no JVD or carotid bruit. CARDIOVASCULAR: Showed normal first and second heart sounds with no gallops or murmurs. RESPIRATORY SYSTEM: Show good air entry on both sides of the lungs with no abnormal breath sounds. GASTROINTESTINAL SYSTEM: Show abdomen to be full, soft, nontender with no organomegaly or rigidity. NEUROLOGICAL: Showed the patient to be alert, oriented to person only with no focal deficit. MUSCULOSKELETAL SYSTEM: Show no joint swelling or tenderness and there is intraosseous vascular access port in the right leg. DERMATOLOGICAL: Showed bruises in both lower extremities. GENITOURINARY: Show no costovertebral angle tenderness. PERTINENT LABORATORY AND IMAGING STUDIES: The patient had a CT of the head without contrast done that shows no acute intracranial lesion. Also, the patient had chest x-ray done that came back showing no acute cardiopulmonary lesion. The patient's lab results show CBC with elevated with normal white count and elevated hemoglobin of 15.9 and elevated hematocrit of 47 with low platelet count of 124 and elevated segmented neutrophil count of 83% on CBC differential. The patient's chemistry shows high lactic acid level of 3.8 with total CPK of 325 and unremarkable toxicology screen. DIAGNOSES: 1. Altered mental status. 2. Lactic acidosis. PLAN OF CARE: 1. The patient will be admitted to medical floor on remote telemetry. 2. The patient has urinalysis already ordered and result is pending. 3. The patient will be on Accu-Chek before meals and at bedtime followed by low-dose sliding scale using regular insulin coverage. 4. The patient will have lactic acid level checked 4 hours from the last level. 5. The patient will be on p.r.n. medications like Tylenol 650 mg by mouth every 4 hours as needed for fever and headache and Zofran 4 mg every 8 hours as needed for nausea and vomiting. 6. The patient will be on consistent carbohydrate, low sodium diet. 7. The patient will be on his home medications as shown in the medication reconciliation section. 8. The patient will be on oxygen by nasal cannula at 2 liters per minute and will be on normal saline at 75 mL an hour. [facility]# [id number] [facility]
[2018-10-18] MEDS ORDERED: HumaLOG SUB-Q SCH (06:00)
[2018-10-18] MEDS ORDERED: HumuLIN R SUB-Q SCH (07:30)
[2018-10-18] MEDS: HumaLOG SUB-Q SCH ×4 (07:42→22:58)
[2018-10-18] MEDS ORDERED: ROCEPHIN/NS 1 GM/50 ML 1 GM/50 ML BAG IV SCH (10:00)
[2018-10-18] MEDS ORDERED: NON-FORMULARY (Calcium Carbonate/Vitamin D3 [Calcium 600-Vit D3 400 Tablet] 1 EACH) PO SCH (10:00)
[2018-10-18] MEDS: COLACE PO SCH ×2 (11:09→22:54)
[2018-10-18] MEDS: SYMMETREL PO SCH ×2 (11:09→22:56)
[2018-10-18] MEDS: ZESTRIL PO SCH ×2 (11:10→22:54)
[2018-10-18] MEDS: OYSCO D 500 MG-200 UNIT PO SCH (11:11)
[2018-10-18] MEDS: BABY ASPIRIN PO SCH (11:11)
[2018-10-18] MEDS ORDERED: DUONEB *Not for PRN Use IH (13:43)
[2018-10-18] MEDS ORDERED: HALDOL IM PRN (13:44)
[2018-10-18] MEDS ORDERED: HALOPERIDOL 5 MG PO SCH (13:45)
[2018-10-18] MEDS: HALDOL PO SCH (14:50)
[2018-10-18] MEDS: HALDOL PO PRN (17:28)
[2018-10-18] MEDS: DILANTIN PO SCH (17:28)
[2018-10-18] MEDS ORDERED: NON-FORMULARY (Pravastatin Sodium [Pravastatin] 10 MG) PO SCH (22:00)
[2018-10-18] MEDS: ARICEPT PO SCH (22:54)
[2018-10-19] MEDS: NACL 0.9% 1000 ML 1,000 ML IV SCH (00:18)
[2018-10-19] MEDS: DILANTIN PO SCH ×2 (02:29→13:29)
[2018-10-19] MEDS: HEPARIN SUB-Q SCH ×3 (05:51→21:46)
[2018-10-19] MEDS ORDERED: PHENOBARBITAL 97.2 MG PO SCH (10:00)
[2018-10-19] MEDS: OYSCO D 500 MG-200 UNIT PO SCH (10:09)
[2018-10-19] MEDS: ZESTRIL PO SCH ×2 (10:09→21:10)
[2018-10-19] MEDS: HALDOL PO SCH (10:09)
[2018-10-19] MEDS: COLACE PO SCH ×2 (10:09→21:13)
[2018-10-19] MEDS: SYMMETREL PO SCH ×2 (10:10→21:12)
[2018-10-19] MEDS: BABY ASPIRIN PO SCH (10:10)
[2018-10-19] MEDS: HumaLOG SUB-Q SCH ×4 (10:11→22:51)
[2018-10-19 13:28] LABS: Basophils # (Auto) 0.1 K/mm3 (0.0-0.1); Basophils % (Auto) 0.9 % (0.0-1.8); Eosinophils # (Auto) 0.3 K/mm3 (0.0-0.4); Eosinophils % (Auto) 4.4 % (0.0-4.3); Hematocrit 45.8 % (35.5-45.6); Hemoglobin 15.4 gm/dl (11.8-15.2); Lymphocytes # (Auto) 1.1 K/mm3 (1.2-5.4); Lymphocytes % (Auto) 16.4 % (13.4-35.0); Mean Corpuscular HGB Conc 34 % (32-34); Mean Corpuscular Volume 92 fl (84-94); Monocytes # (Auto) 0.6 K/mm3 (0.0-0.8); Monocytes % (Auto) 9.3 % (0.0-7.3); Platelet Count 123 K/mm3 (140-440); Red Blood Count 4.97 M/mm3 (3.65-5.03); Red Cell Distribution Width 14.7 % (13.2-15.2)
[2018-10-19 13:33] LABS: Alanine Aminotransferase 14 units/L (7-56); Albumin 3.9 g/dL (3.9-5); BUN/Creatinine Ratio 13; Blood Urea Nitrogen 10 mg/dL (9-20); Calcium 8.7 mg/dL (8.4-10.2); Hemolysis Index 30
--- NOTE | 2018-10-19 14:49 | Progress Note ---
Assessment and Plan Assessment and plan: 72-year-old man with history of dementia brought in from [facility] for change in mental status, the patient was combative and agitated. He was apparently this fighting and swinging at members called the jail and verbally threatening them. Past medical history; history of CVA, diabetes, GERD, chronic kidney disease, seizure disorder, dementia, multiple wounds on lower extremities which are present on admission, hypertension, nicotine dependence, Alzheimer's dementia, peripheral vascular disease, hyperlipidemia, Parkinson's disease Diagnoses Dementia with behavioral disturbance Lactic acidosis Sinus tachycardia Type 2 diabetes with hyperglycemia Dehydration Mild nontraumatic rhabdomyolysis hypophosphatemia Plan IV fluids, No evidence of infection Mental health consult We'll need psych medications optimized prior to discharge back to jail oral phos repleted DVT prophylaxis chemical History Interval history: continues to be confused and combative Review of systems Constitutional: No fevers, no malaise, no joint pains CVS: No chest pain, no orthopnea, no dyspnea on exertion, no pedal edema GI: No abdominal pain, no diarrhea, no vomiting, no constipation Respiratory: No shortness of breath, no wheezing, no coughing Hospitalist Physical - Physical exam Narrative exam: General.: Appears well, no distress, nontoxic HEENT: Moist mucous membranes, extraocular muscles intact, no lymphadenopathy Neck: supple Cardiac: S1-S2 heard Lungs: clear to auscultation bilaterally Abdomen: soft , nontender, nondistended, bowel sounds positive Extremities: no edema clubbing or cyanosis Skin: no rash or lesions Neurologic: patient moves extremities, opens eyes, yelling profanity Psych: agitated and combative, lacks insight - Constitutional Vitals: Temp Pulse Resp BP Pulse Ox 99.5 F 80 22 114/73 92 10/19/18 14:28 10/19/18 14:28 10/19/18 14:28 10/19/18 14:28 10/19/18 14:28 Results - Labs CBC & Chem 7: 10/19/18 12:47 10/19/18 12:47 Labs: Laboratory Last Values WBC 6.9 K/mm3 (4.5-11.0) 10/19/18 12:47 RBC 4.97 M/mm3 (3.65-5.03) 10/19/18 12:47 Hgb 15.4 gm/dl (11.8-15.2) H 10/19/18 12:47 Hct 45.8 % (35.5-45.6) H 10/19/18 12:47 MCV 92 fl (84-94) 10/19/18 12:47 MCH 31 pg (28-32) 10/19/18 12:47 MCHC 34 % (32-34) 10/19/18 12:47 RDW 14.7 % (13.2-15.2) 10/19/18 12:47 Plt Count 123 K/mm3 (140-440) L 10/19/18 12:47 Lymph % (Auto) 16.4 % (13.4-35.0) 10/19/18 12:47 [place] % (Auto) 9.3 % (0.0-7.3) H 10/19/18 12:47 Eos % (Auto) 4.4 % (0.0-4.3) H 10/19/18 12:47 Baso % (Auto) 0.9 % (0.0-1.8) 10/19/18 12:47 Lymph # 1.1 K/mm3 (1.2-5.4) L 10/19/18 12:47 [place] # 0.6 K/mm3 (0.0-0.8) 10/19/18 12:47 Eos # 0.3 K/mm3 (0.0-0.4) 10/19/18 12:47 Baso # 0.1 K/mm3 (0.0-0.1) 10/19/18 12:47 Seg Neutrophils % 69.0 % (40.0-70.0) 10/19/18 12:47 Seg Neutrophils # 4.8 K/mm3 (1.8-7.7) 10/19/18 12:47 Sodium 134 mmol/L (137-145) L 10/19/18 12:47 Potassium 4.4 mmol/L (3.6-5.0) 10/19/18 12:47 Chloride 97.5 mmol/L (98-107) L 10/19/18 12:47 Carbon Dioxide 23 mmol/L (22-30) 10/19/18 12:47 Anion Gap 18 mmol/L 10/19/18 12:47 BUN 10 mg/dL (9-20) 10/19/18 12:47 Creatinine 0.8 mg/dL (0.8-1.5) 10/19/18 12:47 Estimated GFR > 60 ml/min 10/19/18 12:47 BUN/Creatinine Ratio 13 % 10/19/18 12:47 Glucose 161 mg/dL (75-100) H 10/19/18 12:47 POC Glucose 108 (70-105) H 10/19/18 11:54 Lactic Acid 2.00 mmol/L (0.7-2.0) 10/18/18 08:00 Calcium 8.7 mg/dL (8.4-10.2) 10/19/18 12:47 Phosphorus 1.80 mg/dL (2.5-4.5) L 10/19/18 12:47 Magnesium 2.10 mg/dL (1.7-2.3) 10/19/18 12:47 Total Bilirubin 0.40 mg/dL (0.1-1.2) 10/19/18 12:47 AST 18 units/L (5-40) 10/19/18 12:47 ALT 14 units/L (7-56) 10/19/18 12:47 Alkaline Phosphatase 50 units/L (35-129) 10/19/18 12:47 Ammonia 51.0 umol/L (25-60) 10/17/18 22:47 Total Creatine Kinase 325 units/L (55-170) H 10/17/18 22:47 Troponin T < 0.010 ng/mL (0.00-0.029) 10/17/18 22:47 Total Protein 6.9 g/dL (6.3-8.2) 10/19/18 12:47 Albumin 3.9 g/dL (3.9-5) 10/19/18 12:47 Albumin/Globulin Ratio 1.3 % 10/19/18 12:47 TSH 2.020 mlU/mL (0.270-4.200) 10/17/18 22:47 Urine Color Straw (Yellow) 10/18/18 04:27 Urine Turbidity Clear (Clear) 10/18/18 04:27 Urine pH 7.0 (5.0-7.0) 10/18/18 04:27 Ur Specific [place] 1.008 (1.003-1.030) 10/18/18 04:27 Urine Protein <15 mg/dl mg/dL (Negative) 10/18/18 04:27 Urine Glucose (UA) Neg mg/dL (Negative) 10/18/18 04:27 Urine Ketones Neg mg/dL (Negative) 10/18/18 04:27 Urine Blood Neg (Negative) 10/18/18 04:27 Urine Nitrite Neg (Negative) 10/18/18 04:27 Urine Bilirubin Neg (Negative) 10/18/18 04:27 Urine Urobilinogen < 2.0 mg/dL (<2.0) 10/18/18 04:27 Ur Leukocyte Esterase Neg (Negative) 10/18/18 04:27 Urine WBC (Auto) < 1.0 /HPF (0.0-6.0) 10/18/18 04:27 Urine RBC (Auto) < 1.0 /HPF (0.0-6.0) 10/18/18 04:27 Urine Mucus Few /HPF 10/18/18 04:27 Salicylates < 0.3 mg/dL (2.8-20.0) L 10/17/18 22:47 Urine Opiates Screen Presumptive negative 10/18/18 04:27 Urine Methadone Screen Presumptive negative 10/18/18 04:27 Acetaminophen < 5.0 ug/mL (10.0-30.0) L 10/17/18 22:47 Ur Barbiturates Screen Presumptive positive 10/18/18 04:27 Ur Phencyclidine Scrn Presumptive negative 10/18/18 04:27 Ur Amphetamines Screen Presumptive negative 10/18/18 04:27 U Benzodiazepines Scrn Presumptive positive 10/18/18 04:27 Urine Cocaine Screen Presumptive negative 10/18/18 04:27 U Marijuana (THC) Screen Presumptive negative 10/18/18 04:27 Drugs of Abuse Note Disclamer 10/18/18 04:27 Plasma/Serum Alcohol < 0.01 % (0-0.07) 10/17/18 22:47
[2018-10-19] MEDS ORDERED: K-PHOS NEUTRAL PO SCH (18:00)
[2018-10-19] MEDS: ARICEPT PO SCH (21:10)
[2018-10-19] MEDS: PRAVACHOL PO SCH ×2 (21:11)
[2018-10-19] MEDS: HALDOL PO PRN (21:46)
[2018-10-19] MEDS: K-PHOS NEUTRAL PO SCH (23:12)
[2018-10-20] MEDS: DILANTIN PO SCH ×2 (02:44→13:53)
[2018-10-20] MEDS: HALDOL PO PRN (04:54)
[2018-10-20] MEDS: HEPARIN SUB-Q SCH ×3 (05:04→22:07)
[2018-10-20] MEDS: K-PHOS NEUTRAL PO SCH ×5 (08:45→22:11)
[2018-10-20] MEDS: HALDOL PO SCH ×2 (08:45→12:26)
[2018-10-20] MEDS: SYMMETREL PO SCH ×3 (08:45→22:10)
[2018-10-20] MEDS: BABY ASPIRIN PO SCH ×2 (08:46→12:25)
[2018-10-20] MEDS: OYSCO D 500 MG-200 UNIT PO SCH ×2 (08:46→12:27)
[2018-10-20] MEDS: COLACE PO SCH ×3 (08:46→22:08)
[2018-10-20] MEDS: HumaLOG SUB-Q SCH ×3 (08:47→17:32)
[2018-10-20] MEDS: ZESTRIL PO SCH ×3 (08:48→22:09)
--- NOTE | 2018-10-20 10:54 | Progress Note ---
Assessment and Plan Assessment and plan: 72-year-old man with history of dementia brought in from [facility] for change in mental status, the patient was combative and agitated. He was apparently this fighting and swinging at members called the intermediate and verbally threatening them. Past medical history; history of CVA, diabetes, GERD, chronic kidney disease, seizure disorder, dementia, multiple wounds on lower extremities which are present on admission, hypertension, nicotine dependence, Alzheimer's dementia, peripheral vascular disease, hyperlipidemia, Parkinson's disease Diagnoses Dementia with behavioral disturbance Lactic acidosis Sinus tachycardia Type 2 diabetes with hyperglycemia Dehydration Mild nontraumatic rhabdomyolysis hypophosphatemia Plan IV fluids, No evidence of infection Mental health consult We'll need psych medications optimized prior to discharge back to intermediate oral phos repleted DVT prophylaxis chemical History Interval history: continues to be confused and he is no longer combative Review of systems Constitutional: No fevers, no malaise, no joint pains CVS: No chest pain, no orthopnea, no dyspnea on exertion, no pedal edema GI: No abdominal pain, no diarrhea, no vomiting, no constipation Respiratory: No shortness of breath, no wheezing, no coughing Hospitalist Physical - Physical exam Narrative exam: General.: Appears well, no distress, nontoxic HEENT: Moist mucous membranes, extraocular muscles intact, no lymphadenopathy Neck: supple Cardiac: S1-S2 heard Lungs: clear to auscultation bilaterally Abdomen: soft , nontender, nondistended, bowel sounds positive Extremities: no edema clubbing or cyanosis Skin: no rash or lesions Neurologic: patient moves extremities, opens eyes, confused and demented Psych: calm, lacks insight - Constitutional Vitals: Temp Pulse Resp BP Pulse Ox 97.9 F 108 H 18 133/79 97 10/20/18 07:30 10/20/18 07:30 10/20/18 07:30 10/20/18 07:30 10/20/18 07:30 Results - Labs CBC & Chem 7: 10/19/18 12:47 10/19/18 12:47 Labs: Laboratory Last Values WBC 6.9 K/mm3 (4.5-11.0) 10/19/18 12:47 RBC 4.97 M/mm3 (3.65-5.03) 10/19/18 12:47 Hgb 15.4 gm/dl (11.8-15.2) H 10/19/18 12:47 Hct 45.8 % (35.5-45.6) H 10/19/18 12:47 MCV 92 fl (84-94) 10/19/18 12:47 MCH 31 pg (28-32) 10/19/18 12:47 MCHC 34 % (32-34) 10/19/18 12:47 RDW 14.7 % (13.2-15.2) 10/19/18 12:47 Plt Count 123 K/mm3 (140-440) L 10/19/18 12:47 Lymph % (Auto) 16.4 % (13.4-35.0) 10/19/18 12:47 [place] % (Auto) 9.3 % (0.0-7.3) H 10/19/18 12:47 Eos % (Auto) 4.4 % (0.0-4.3) H 10/19/18 12:47 Baso % (Auto) 0.9 % (0.0-1.8) 10/19/18 12:47 Lymph # 1.1 K/mm3 (1.2-5.4) L 10/19/18 12:47 [place] # 0.6 K/mm3 (0.0-0.8) 10/19/18 12:47 Eos # 0.3 K/mm3 (0.0-0.4) 10/19/18 12:47 Baso # 0.1 K/mm3 (0.0-0.1) 10/19/18 12:47 Seg Neutrophils % 69.0 % (40.0-70.0) 10/19/18 12:47 Seg Neutrophils # 4.8 K/mm3 (1.8-7.7) 10/19/18 12:47 Sodium 134 mmol/L (137-145) L 10/19/18 12:47 Potassium 4.4 mmol/L (3.6-5.0) 10/19/18 12:47 Chloride 97.5 mmol/L (98-107) L 10/19/18 12:47 Carbon Dioxide 23 mmol/L (22-30) 10/19/18 12:47 Anion Gap 18 mmol/L 10/19/18 12:47 BUN 10 mg/dL (9-20) 10/19/18 12:47 Creatinine 0.8 mg/dL (0.8-1.5) 10/19/18 12:47 Estimated GFR > 60 ml/min 10/19/18 12:47 BUN/Creatinine Ratio 13 % 10/19/18 12:47 Glucose 161 mg/dL (75-100) H 10/19/18 12:47 POC Glucose 128 (70-105) H 10/20/18 07:32 Lactic Acid 2.00 mmol/L (0.7-2.0) 10/18/18 08:00 Calcium 8.7 mg/dL (8.4-10.2) 10/19/18 12:47 Phosphorus 1.80 mg/dL (2.5-4.5) L 10/19/18 12:47 Magnesium 2.10 mg/dL (1.7-2.3) 10/19/18 12:47 Total Bilirubin 0.40 mg/dL (0.1-1.2) 10/19/18 12:47 AST 18 units/L (5-40) 10/19/18 12:47 ALT 14 units/L (7-56) 10/19/18 12:47 Alkaline Phosphatase 50 units/L (35-129) 10/19/18 12:47 Ammonia 51.0 umol/L (25-60) 10/17/18 22:47 Total Creatine Kinase 325 units/L (55-170) H 10/17/18 22:47 Troponin T < 0.010 ng/mL (0.00-0.029) 10/17/18 22:47 Total Protein 6.9 g/dL (6.3-8.2) 10/19/18 12:47 Albumin 3.9 g/dL (3.9-5) 10/19/18 12:47 Albumin/Globulin Ratio 1.3 % 10/19/18 12:47 TSH 2.020 mlU/mL (0.270-4.200) 10/17/18 22:47 Urine Color Straw (Yellow) 10/18/18 04:27 Urine Turbidity Clear (Clear) 10/18/18 04:27 Urine pH 7.0 (5.0-7.0) 10/18/18 04:27 Ur Specific [place] 1.008 (1.003-1.030) 10/18/18 04:27 Urine Protein <15 mg/dl mg/dL (Negative) 10/18/18 04:27 Urine Glucose (UA) Neg mg/dL (Negative) 10/18/18 04:27 Urine Ketones Neg mg/dL (Negative) 10/18/18 04:27 Urine Blood Neg (Negative) 10/18/18 04:27 Urine Nitrite Neg (Negative) 10/18/18 04:27 Urine Bilirubin Neg (Negative) 10/18/18 04:27 Urine Urobilinogen < 2.0 mg/dL (<2.0) 10/18/18 04:27 Ur Leukocyte Esterase Neg (Negative) 10/18/18 04:27 Urine WBC (Auto) < 1.0 /HPF (0.0-6.0) 10/18/18 04:27 Urine RBC (Auto) < 1.0 /HPF (0.0-6.0) 10/18/18 04:27 Urine Mucus Few /HPF 10/18/18 04:27 Salicylates < 0.3 mg/dL (2.8-20.0) L 10/17/18 22:47 Urine Opiates Screen Presumptive negative 10/18/18 04:27 Urine Methadone Screen Presumptive negative 10/18/18 04:27 Acetaminophen < 5.0 ug/mL (10.0-30.0) L 10/17/18 22:47 Ur Barbiturates Screen Presumptive positive 10/18/18 04:27 Ur Phencyclidine Scrn Presumptive negative 10/18/18 04:27 Ur Amphetamines Screen Presumptive negative 10/18/18 04:27 U Benzodiazepines Scrn Presumptive positive 10/18/18 04:27 Urine Cocaine Screen Presumptive negative 10/18/18 04:27 U Marijuana (THC) Screen Presumptive negative 10/18/18 04:27 Drugs of Abuse Note Disclamer 10/18/18 04:27 Plasma/Serum Alcohol < 0.01 % (0-0.07) 10/17/18 22:47 Active Medications - Current Medications Current Medications: Generic Name Dose Route Start Last Admin Trade Name Freq PRN Reason Stop Dose Admin Acetaminophen 650 mg 10/18/18 05:00 Tylenol PO Q4H PRN Fever >101 Albuterol 2.5 mg 10/18/18 04:54 10/19/18 01:45 Proventil IH 2.5 mg Q6H PRN Administration Shortness Of Breath Amantadine HCl 100 mg 10/18/18 10:00 10/20/18 08:45 Symmetrel PO 100 mg BID LISANDRA Administration Aspirin 81 mg 10/18/18 10:00 10/20/18 08:46 Baby Aspirin PO 81 mg QDAY LISANDRA Administration Calcium/Vitamin D 1 each 10/18/18 10:00 10/20/18 08:46 Oysco D 500 Mg-200 Unit PO 1 each DAILY LISANDRA Administration Dextrose 50 ml 10/18/18 04:52 D50w (25gm) Syringe IV PRN PRN Hypoglycemia Divalproex Sodium 250 mg 10/18/18 10:00 10/20/18 08:48 Depakote Er PO 250 mg BID LISANDRA Administration Docusate Sodium 100 mg 10/18/18 10:00 10/20/18 08:46 Colace PO 100 mg BID LISANDRA Administration Donepezil HCl 10 mg 10/18/18 22:00 10/19/18 21:10 Aricept PO 10 mg HS LISANDRA Administration Haloperidol 1 mg 10/18/18 13:44 10/20/18 04:54 Haldol PO 1 mg Q6H PRN Administration Agitation Haloperidol 5 mg 10/18/18 14:15 10/20/18 08:45 Haldol PO 5 mg QDAY LISANDRA Administration Haloperidol Lactate 5 mg 10/18/18 13:44 10/19/18 01:39 Haldol IM 5 mg Q6H PRN Administration Agitation Heparin Sodium (Porcine) 5,000 unit 10/18/18 06:00 10/20/18 05:04 Heparin SUB-Q 5,000 unit Q8HR LISANDRA Administration Sodium Chloride 1,000 mls @ 75 mls/hr 10/18/18 06:00 10/19/18 00:18 Nacl 0.9% 1000 Ml IV 75 mls/hr DIRECT LISANDRA Administration Insulin Human Lispro 0 unit 10/18/18 07:30 10/20/18 08:47 Humalog SUB-Q Not Given QACHS [facility] Protocol Lisinopril 20 mg 10/18/18 10:00 10/20/18 08:48 Zestril PO 20 mg Q12HR LISANDRA Administration Olanzapine 5 mg 10/18/18 22:00 10/19/18 21:12 Zyprexa PO 5 mg HS LISANDRA Administration Ondansetron HCl 4 mg 10/18/18 05:00 Zofran IV Q8H PRN Nausea And Vomiting Phenobarbital 97.2 mg 10/19/18 10:00 10/20/18 08:45 Phenobarbital PO 97.2 mg QDAY LISANDRA Administration Phenytoin 200 mg 10/18/18 14:00 10/20/18 02:44 Dilantin PO 200 mg Q12H LISANDRA Administration Pravastatin Sodium 10 mg 10/18/18 22:00 10/19/18 21:11 Pravachol PO 10 mg QHS LISANDRA Administration Sodium Phosphate 250 mg 10/19/18 20:00 10/20/18 08:45 K-Phos Neutral PO 250 mg QID LISANDRA Administration Nutrition/Malnutrition Assess - Dietary Evaluation Nutrition/Malnutrition Findings: Nutrition Notes Start: 10/19/18 16:07 Freq: Status: Active Protocol: Document 10/19/18 16:08 RM (Rec: 10/19/18 16:12 RM [id number]) Nutrition Notes Need for Assessment generated from: MD Order Initial or Follow up Brief Note Current Diagnosis Hypertension,Hyperlipidemia Other Pertinent Diagnosis R & L knee wounds,GERD,Hx CVA, Dementia, Alzheimer's, PVD, Parkinson's Current Diet Consistent CHO,Low sodium Labs/Tests No recent labs Pertinent Medications Reviewed Height 6 ft Weight 117.6 kg [place] Body Weight (kg) 80.90 BMI 35.2 Subjective/Other Information Consulted for TF recommendation. Diet advanced to Consistent CHO,Low sodium by time of visit. Pt from ID. No family present at time of visit to facilitate assessment. No recorded PO intakes. Burn Absent Trauma Absent Nutrition Intervention Follow-Up By: 10/21/18 Additional Comments Follow for adequate intakes
--- NOTE | 2018-10-20 14:58 | Consultation ---
History of Present Illness - Reason for Consult Consult date: 10/20/18 Reason for consult: Mental Health Evaluation Requesting physician: SHREE ENRIQUEZ - Chief Complaint Chief complaint: "What do you want" - History of Present Psychiatric Illness 72-year-old AA male who presened to the ER for combative behavior. Today the patient is calm, but confused during the assessment. He was able to state his full name and . He could not name the past/present [place] Presidents when asked. He could not state his current medication regimen. Overall, the patient is a poor historian,.No gestures of SI/HI's. Medications and Allergies Allergies Allergy/AdvReac Type Severity Reaction Status Date / Time SALAMI AdvReac Unknown Uncoded 09/06/14 12:29 Home Medications Medication Instructions Recorded Confirmed Last Taken Type Haloperidol 5 mg PO QDAY 09/06/14 10/18/18 Unknown History OLANzapine [ZyPREXA] 5 mg PO HS 09/06/14 10/18/18 Unknown History ALBUTEROL NEB's [Proventil 0.083% 2.5 mg IH Q6H PRN 08/27/17 10/18/18 Unknown History NEBS] Amantadine HCl [Amantadine] 100 mg PO BID 08/27/17 10/18/18 Unknown History Aspirin [Aspirin BABY CHEW TAB] 81 mg PO QDAY 08/27/17 10/18/18 Unknown History Benazepril HCl [Lotensin] 20 mg PO Q12H 08/27/17 10/18/18 Unknown History Calcium Carbonate/Vitamin D3 1 each PO DAILY 08/27/17 10/18/18 Unknown History [Calcium 600-Vit D3 400 Tablet] Docusate Sodium [Colace CAP] 100 mg PO BID 08/27/17 10/18/18 Unknown History Donepezil [Aricept] 10 mg PO HS 08/27/17 10/18/18 Unknown History PHENobarbital [Phenobarbital] 97.2 mg PO QDAY 08/27/17 10/18/18 Unknown History Phenytoin Sodium Extended 200 mg PO Q12H 08/27/17 10/18/18 Unknown History [Dilantin] Pravastatin Sodium [Pravastatin] 10 mg PO QHS 08/27/17 10/18/18 Unknown History Insulin NPH/Regular [NovoLIN 70/30] 25 unit SUB-Q BIDDIAB units 09/05/17 10/18/18 Unknown Rx Divalproex ER [DepaKOTE ER] 250 mg PO BID 10/01/17 10/18/18 Unknown History Insulin Aspart [NovoLOG Flexpen] See Protocol SUB-Q ACHS 10/01/17 10/18/18 Unknown History Ipratropium/Albuterol Sulfate 1 ampul IH Q6HR PRN 10/01/17 10/18/18 Unknown History [DUONEB *Not for PRN Use*] Active Meds: Active Medications Acetaminophen (Tylenol) 650 mg PO Q4H PRN PRN Reason: Fever >101 Albuterol (Proventil) 2.5 mg IH Q6H PRN PRN Reason: Shortness Of Breath Last Admin: 10/19/18 01:45 Dose: 2.5 mg Documented by: Amantadine HCl (Symmetrel) 100 mg PO BID [facility] Last Admin: 10/20/18 12:27 Dose: Not Given Documented by: Aspirin (Baby Aspirin) 81 mg PO QDAY [facility] Last Admin: 10/20/18 12:25 Dose: Not Given Documented by: Calcium/Vitamin D (Oysco D 500 Mg-200 Unit) 1 each PO DAILY [facility] Last Admin: 10/20/18 12:27 Dose: Not Given Documented by: Dextrose (D50w (25gm) Syringe) 50 ml IV PRN PRN PRN Reason: Hypoglycemia Divalproex Sodium (Depakote Er) 250 mg PO BID [facility] Last Admin: 10/20/18 12:26 Dose: Not Given Documented by: Docusate Sodium (Colace) 100 mg PO BID [facility] Last Admin: 10/20/18 12:26 Dose: Not Given Documented by: Donepezil HCl (Aricept) 10 mg PO HS [facility] Last Admin: 10/19/18 21:10 Dose: 10 mg Documented by: Haloperidol Lactate (Haldol) 5 mg IM Q6H PRN PRN Reason: Agitation Last Admin: 10/19/18 01:39 Dose: 5 mg Documented by: Heparin Sodium (Porcine) (Heparin) 5,000 unit SUB-Q Q8HR [facility] Last Admin: 10/20/18 13:53 Dose: 5,000 unit Documented by: Sodium Chloride (Nacl 0.9% 1000 Ml) 1,000 mls @ 75 mls/hr IV DIRECT [facility] Last Admin: 10/19/18 00:18 Dose: 75 mls/hr Documented by: Insulin Human Lispro (Humalog) 0 unit SUB-Q QACHS [facility]; Protocol Last Admin: 10/20/18 12:27 Dose: Not Given Documented by: Lisinopril (Zestril) 20 mg PO Q12HR [facility] Last Admin: 10/20/18 12:27 Dose: Not Given Documented by: Olanzapine (Zyprexa) 5 mg PO HS [facility] Last Admin: 10/19/18 21:12 Dose: 5 mg Documented by: Ondansetron HCl (Zofran) 4 mg IV Q8H PRN PRN Reason: Nausea And Vomiting Phenobarbital (Phenobarbital) 97.2 mg PO QDAY [facility] Last Admin: 10/20/18 12:27 Dose: Not Given Documented by: Phenytoin (Dilantin) 200 mg PO Q12H [facility] Last Admin: 10/20/18 13:53 Dose: 200 mg Documented by: Pravastatin Sodium (Pravachol) 10 mg PO QHS [facility] Last Admin: 10/19/18 21:11 Dose: 10 mg Documented by: Sodium Phosphate (K-Phos Neutral) 250 mg PO QID [facility] Last Admin: 10/20/18 13:53 Dose: 250 mg Documented by: Past psychiatric history - Past Medical History Past Medical History: GERD, stroke, other (Dementia) Past Surgical History: Other (Unable to obtain ) - past Psychiatric treatment and history psychiatric treatment history: Unable to obtain a psy hx and fam psy hx. - Social History Social history: other (Reside at a .) Mental Status Exam - Vital signs Last Vital Signs Temp 98.2 F 10/20/18 12:54 Pulse 120 H 10/20/18 12:54 Resp 18 10/20/18 12:54 BP 118/75 10/20/18 12:54 Pulse Ox 92 10/20/18 12:54 - Exam Narrative exam: MSE: Appearance: calm Behavior: regular eye contact Speech: regular rate and loud tone Mood: "okay" Affect: congruent to mood Thought Process: unable to assess Thought Content: denies SI/HI's Motor Activity: sitting up in the bed Cognition: A/O x 2, with confusion. mild tremors noted Insight: limited Judgment: unable to assess Results Result Diagrams: 10/19/18 12:47 10/19/18 12:47 Abnormal lab results 10/19/18 10/19/18 10/20/18 Range/Units 16:48 21:25 07:32 POC Glucose 114 H 182 H 128 H (70-105) 10/20/18 Range/Units 11:16 POC Glucose 112 H (70-105) All other labs normal. Assessment and Plan Assessment and plan: Impression: Hx of Dementia. Today the patient is calm, but confused during the assessment. No acute agitation noted. Recommendation/Plan: Continue home medications Zyprexa 5 mg PO HS and Aricept 10 mg PO HS. Will follow up with the patient in 24 hours. Recommend Delirium precautions below: 1. Frequently reorient patient and involve him/her in their care (simple explanations of procedures, tests, medications). 2. Lights on and shades open during daytime hours. 3. Write date and goals of care in a visible place. 4. Try to avoid unnecessary interruptions to sleep during nighttime hours. 5. Obtain glasses, hearing aids from home if patient uses these at baseline. 6. Avoid medications that may exacerbate delirium (especially narcotics, benzodiazepines, barbiturates, ambien, lunesta, and medications with excessive anticholinergic properties). Dispo: The patient can return to SNF once medically clear. Will staff with Dr. Billie Shah.
[2018-10-20] MEDS: NACL 0.9% 1000 ML 1,000 ML IV SCH (22:06)
[2018-10-20] MEDS: PRAVACHOL PO SCH (22:07)
[2018-10-20] MEDS: ARICEPT PO SCH (22:07)
[2018-10-21] MEDS: DILANTIN PO SCH ×2 (03:08→14:54)
[2018-10-21] MEDS: HumaLOG SUB-Q SCH ×3 (05:09→13:49)
[2018-10-21] MEDS: HEPARIN SUB-Q SCH ×2 (05:10→14:46)
[2018-10-21] MEDS: COLACE PO SCH (10:48)
[2018-10-21] MEDS: BABY ASPIRIN PO SCH (10:48)
[2018-10-21] MEDS: OYSCO D 500 MG-200 UNIT PO SCH (10:48)
[2018-10-21] MEDS: SYMMETREL PO SCH (10:49)
[2018-10-21] MEDS: ZESTRIL PO SCH (10:49)
[2018-10-21] MEDS: K-PHOS NEUTRAL PO SCH ×2 (10:50→14:54)
--- NOTE | 2018-10-21 10:51 | Progress Note ---
Subjective - Reason for Consult Consult date: 10/21/18 Reason for consult: Psychiatry Follow-up - Chief Complaint Chief complaint: "Hello" 72-year-old AA male who presented to the ER for combative behavior. Today the patient is calm and cooperative during the assessment. He is more lucid today and was able to answer some questions. He stated that he reside at a longterm and was able to state his when asked. Per the notes, no behavioral disturbances overnight. Per the MAR, the patient have not received a PRN medication for acute agitation. He stated that he would like to return to the nursing when discharged. He denies SI/HI's and AVH's. No indications of side effects of his medications. Mental Status Exam - Vital signs Last Vital Signs Temp 97.8 F 10/21/18 07:34 Pulse 100 H 10/21/18 07:34 Resp 20 10/21/18 07:34 BP 134/87 10/21/18 07:34 Pulse Ox 96 10/21/18 07:34 - Exam Narrative exam: MSE: Appearance: calm, cooperative Behavior: regular eye contact Speech: regular rate and loud tone Mood: "okay" Affect: congruent to mood Thought Process: circumstantial Thought Content: denies SI/HI's and AVH's Motor Activity: sitting up in the bed Cognition: A/O x 2, with confusion. mild tremors noted Insight: limited Judgment:fair Assessment and Plan Impression: Hx of Dementia. Today the patient is calm and cooperative during the assessment. No acute agitation noted. Recommendation/Plan: Continue home medications Zyprexa 5 mg PO HS and Aricept 10 mg PO HS. Psy sign off. Recommend Delirium precautions below: 1. Frequently reorient patient and involve him/her in their care (simple explanations of procedures, tests, medications). 2. Lights on and shades open during daytime hours. 3. Write date and goals of care in a visible place. 4. Try to avoid unnecessary interruptions to sleep during nighttime hours. 5. Obtain glasses, hearing aids from home if patient uses these at baseline. 6. Avoid medications that may exacerbate delirium (especially narcotics, benzodiazepines, barbiturates, ambien, lunesta, and medications with excessive anticholinergic properties). Dispo: The patient can return to SNF once medically clear Will staff with Dr. Lj Shah.
[2018-10-21 13:45] VITALS: BP 138/86
--- NOTE | 2018-10-21 16:46 | Discharge Summary ---
Providers - Providers Date of Admission: 10/18/18 03:32 Attending physician: SHREE ENRIQUEZ MD 10/18/18 13:44 Consult to Mental Health [CONS] Routine Reason For Exam: behavioral disturbance Place consult to:: Mental Health Notified:: Sumit BARRETT If yes, spoke with:: [facility] Time called:: 17:29 Comment:: Patient has been seen by psych previously. Psychiatrist will see pt 10/18/18 13:47 Consult to Dietitian/Nutrition [CONS] Routine Physician Instructions: 3 Reason For Exam: Reason for Consult: Write/Manage Tube Feeding 10/19/18 14:40 Consult to Wound/ET Nurse [CONS] Routine Reason For Exam: wound eval Primary care physician: REMINGTON PAGE MD Hospitalization Condition: Stable Hospital course: 72-year-old man with history of dementia brought in from [facility] for change in mental status, the patient was combative and agitated. He was apparently this fighting and swinging at members called the [employer] and verbally threatening them. Past medical history; history of CVA, diabetes, GERD, chronic kidney disease, seizure disorder, dementia, multiple wounds on lower extremities which are present on admission, hypertension, nicotine dependence, Alzheimer's dementia, peripheral vascular disease, hyperlipidemia, Parkinson's disease Hospital course The patient received IV fluids. Infectious workup was negative. He was seen by mental health, and his psych medications were optimized. His phosphate levels were low, and therefore he received phosphate repletion. The patient was improved, gentle and agreeable at the time of discharge. Diagnoses Dementia with behavioral disturbance Lactic acidosis Sinus tachycardia Type 2 diabetes with hyperglycemia Dehydration Mild nontraumatic rhabdomyolysis hypophosphatemia Disposition: DC/TX-03 SNF [facility] Time spent for discharge: 33 mins Core Measure Documentation - Palliative Care Palliative Care/ Comfort Measures: Not Applicable - Core Measures Any of the following diagnoses?: none Exam - Physical Exam Narrative exam: General.: Appears well, no distress, nontoxic HEENT: Moist mucous membranes, extraocular muscles intact, no lymphadenopathy Neck: supple Cardiac: S1-S2 heard Lungs: clear to auscultation bilaterally Abdomen: soft , nontender, nondistended, bowel sounds positive Extremities: no edema clubbing or cyanosis Skin: no rash or lesions Neurologic: patient moves extremities, opens eyes, confused and demented Psych: calm, lacks insight - Constitutional Vitals: Temp Pulse Resp BP Pulse Ox 97.9 F 105 H 20 138/86 97 10/21/18 13:04 10/21/18 13:04 10/21/18 13:04 10/21/18 13:04 10/21/18 13:23 Plan Follow up with: [facility] MD SEVERIANO [Primary Care Provider] - 7 Days Prescriptions: Phosphorus #1 [K-Phos Neutral] 250 mg PO BID 7 Days tablet Insulin Aspart [NovoLOG Flexpen] See Protocol SUB-Q AC #5 insuln.pen
--- NOTE | 2018-10-22 12:40 | Progress Note ---
Subjective - Reason for Consult Consult date: 10/22/18 Reason for consult: Psychiatric Follow-up Evaluation - Chief Complaint Chief complaint: "Glory" Patient is a 72-year-old AA male who presented to the ER for combative behavior. Today the patient is calm and cooperative during the assessment. He is more lucid today and was able to answer some questions. He stated that he reside at a shelter and was able to state his when asked. Per the notes, no behavioral disturbances overnight. Per the MAR, the patient have not received a PRN medication for acute agitation. He stated that he would like to return to the nursing when discharged. He denies SI/HI's and AVH's. No indications of side effects of his medications. Mental Status Exam - Vital signs Last Vital Signs Temp 97.9 F 10/21/18 13:04 Pulse 105 H 10/21/18 13:04 Resp 20 10/21/18 13:04 BP 138/86 10/21/18 13:04 Pulse Ox 97 10/21/18 13:23 - Exam Narrative exam: Mental Status Exam: Appearance: calm, cooperative Behavior: regular eye contact Speech: regular rate and loud tone Mood: "okay" Affect: congruent to mood Thought Process: circumstantial Thought Content: denies SI/HI's and AVH's Motor Activity: sitting up in the bed Cognition: A/O x 2, with confusion. mild tremors noted Insight: limited Judgment:fair
== END 2018-10-21 17:42 | DRG 71 ==
LOC: ED 22:19 → 4A 10-18 03:32 → 2B-ACE 10-18 22:29
PROVIDERS: ADMIT Internal Medicine; ATTEND Internal Medicine
PROC: 3E0A3GC Introduction of Other Therapeutic Substance into Bone Marrow, Percutaneous Approach (ICD-10-PCS; principal; 2018-10-18)
DX: G93.41 Metabolic encephalopathy (principal); M62.82 Rhabdomyolysis; R65.10 Systemic inflammatory response syndrome (SIRS) of non-infectious origin without acute organ dysfunction; E87.2 Acidosis; F02.81 Dementia in other diseases classified elsewhere, unspecified severity, with behavioral disturbance; G30.9 Alzheimer's disease, unspecified; E11.65 Type 2 diabetes mellitus with hyperglycemia; G40.909 Epilepsy, unspecified, not intractable, without status epilepticus; K21.9 Gastro-esophageal reflux disease without esophagitis; E83.39 Other disorders of phosphorus metabolism; E86.0 Dehydration; N18.9 Chronic kidney disease, unspecified; E11.22 Type 2 diabetes mellitus with diabetic chronic kidney disease; I12.9 Hypertensive chronic kidney disease with stage 1 through stage 4 chronic kidney disease, or unspecified chronic kidney disease; Z79.51 Long term (current) use of inhaled steroids; G20 Parkinson's disease; Z86.73 Personal history of transient ischemic attack (TIA), and cerebral infarction without residual deficits; Z79.899 Other long term (current) drug therapy; Z79.82 Long term (current) use of aspirin; Z79.4 Long term (current) use of insulin
CPT/HCPCS: 36415; 70450; 71045; 80053; 80307; 80320; 81001; 82140; 82550; 82962; 83735; 84100; 84443; 84484; 85025; 87040; 87086; 87116; 93005; 93010; 94640; 94760; 96372; 96374; G0378; A9270-GY; G0480; J0696; J1630; J1644; J1815; J2060; J7030

== ENCOUNTER 2018-11-25 16:09 | Emergency (ER) | payer MEDICARE ==
--- NOTE | 2018-11-25 17:41 | Emergency Department Report ---
ED Extremity Problem HPI - General Chief complaint: Extremity Injury, Lower Stated complaint: FX LEFT DISTAL FIBULA/FALL Time Seen by Provider: 11/25/18 17:09 Source: patient Mode of arrival: Stretcher Limitations: No Limitations - History of Present Illness Initial comments: Pt is a 72 yo male with a hx of dementia/CVA brought in the ED from [facility] with c/o a fall that occurred over the weekend. The patient has a hx of dementia and is a poor historian. History provided by facility and EMS personnel. Pt is c/o left leary and left ankle pain. It is reported that pt had XRs completed which revealed a tib/fib fx. According to facility no LOC. - Related Data Home Medications Medication Instructions Recorded Confirmed Last Taken OLANzapine [ZyPREXA] 5 mg PO HS 09/06/14 10/18/18 Unknown ALBUTEROL NEB's [Proventil 0.083% 2.5 mg IH Q6H PRN 08/27/17 10/18/18 Unknown NEBS] Amantadine HCl [Amantadine] 100 mg PO BID 08/27/17 10/18/18 Unknown Aspirin [Aspirin BABY CHEW TAB] 81 mg PO QDAY 08/27/17 10/18/18 Unknown Benazepril HCl [Lotensin] 20 mg PO Q12H 08/27/17 10/18/18 Unknown Calcium Carbonate/Vitamin D3 1 each PO DAILY 08/27/17 10/18/18 Unknown [Calcium 600-Vit D3 400 Tablet] Docusate Sodium [Colace CAP] 100 mg PO BID 08/27/17 10/18/18 Unknown Donepezil [Aricept] 10 mg PO HS 08/27/17 10/18/18 Unknown PHENobarbital [Phenobarbital] 97.2 mg PO QDAY 08/27/17 10/18/18 Unknown Phenytoin Sodium Extended 200 mg PO Q12H 08/27/17 10/18/18 Unknown [Dilantin] Pravastatin Sodium [Pravastatin] 10 mg PO QHS 08/27/17 10/18/18 Unknown Divalproex ER [Depakote ER] 250 mg PO BID 10/01/17 10/18/18 Unknown Ipratropium/Albuterol Sulfate 1 ampul IH Q6HR PRN 10/01/17 10/18/18 Unknown [DUONEB *Not for PRN Use*] Previous Rx's Medication Instructions Recorded Last Taken Type Insulin Aspart [NovoLOG Flexpen] See Protocol SUB-Q AC #5 insuln.pen 10/21/18 Unknown Rx Phosphorus #1 [K-Phos Neutral] 250 mg PO BID 7 Days tablet 10/21/18 Unknown Rx Acetaminophen/Codeine [Tylenol 1 tab PO Q6H PRN #14 tab 11/25/18 Unknown Rx /Codeine # 3 tab] Allergies Allergy/AdvReac Type Severity Reaction Status Date / Time SALAMI AdvReac Unknown Uncoded 09/06/14 12:29 ED Review of Systems ROS: Stated complaint: FX LEFT DISTAL FIBULA/FALL Other details as noted in HPI Comment: All other systems reviewed and negative ED Past Medical Hx - Past Medical History Previous Medical History?: Yes Hx Hypertension: Yes Hx CVA: Yes Hx Diabetes: Yes Hx Deep Vein Thrombosis: No Hx GERD: Yes Hx Renal Disease: Yes (acute kidney failure) Hx Seizures: Yes ("CONVULSIONS" 11/06/06;) Hx Dementia: Yes Additional medical history: Unspecified open wound, left lower leg, long-term use of aspirin, constipation, hypertension, seizures, nicotine dependence, Alzheimer's disease, cellulitis of left lower limb, peripheral vascular disease, hyperlipidemia and Parkinson's disease, - Surgical History Past Surgical History?: Yes Hx Pacemaker: No Hx Internal Defibrillator: No Additional Surgical History: abd. surgery- pt unable to report (poor historian) - Social History Smoking Status: Former Smoker Substance Use Type: None - Medications Home Medications: Home Medications Medication Instructions Recorded Confirmed Last Taken Type OLANzapine [ZyPREXA] 5 mg PO HS 09/06/14 10/18/18 Unknown History ALBUTEROL NEB's [Proventil 0.083% 2.5 mg IH Q6H PRN 08/27/17 10/18/18 Unknown History NEBS] Amantadine HCl [Amantadine] 100 mg PO BID 08/27/17 10/18/18 Unknown History Aspirin [Aspirin BABY CHEW TAB] 81 mg PO QDAY 08/27/17 10/18/18 Unknown History Benazepril HCl [Lotensin] 20 mg PO Q12H 08/27/17 10/18/18 Unknown History Calcium Carbonate/Vitamin D3 1 each PO DAILY 08/27/17 10/18/18 Unknown History [Calcium 600-Vit D3 400 Tablet] Docusate Sodium [Colace CAP] 100 mg PO BID 08/27/17 10/18/18 Unknown History Donepezil [Aricept] 10 mg PO HS 08/27/17 10/18/18 Unknown History PHENobarbital [Phenobarbital] 97.2 mg PO QDAY 08/27/17 10/18/18 Unknown History Phenytoin Sodium Extended 200 mg PO Q12H 08/27/17 10/18/18 Unknown History [Dilantin] Pravastatin Sodium [Pravastatin] 10 mg PO QHS 08/27/17 10/18/18 Unknown History Divalproex ER [Depakote ER] 250 mg PO BID 10/01/17 10/18/18 Unknown History Ipratropium/Albuterol Sulfate 1 ampul IH Q6HR PRN 10/01/17 10/18/18 Unknown History [DUONEB *Not for PRN Use*] Insulin Aspart [NovoLOG Flexpen] See Protocol SUB-Q AC #5 insuln.pen 10/21/18 Unknown Rx Phosphorus #1 [K-Phos Neutral] 250 mg PO BID 7 Days tablet 10/21/18 Unknown Rx Acetaminophen/Codeine [Tylenol 1 tab PO Q6H PRN #14 tab 11/25/18 Unknown Rx /Codeine # 3 tab] ED Physical Exam - General Limitations: No Limitations General appearance: alert, in no apparent distress - Head Head exam: Present: atraumatic, normocephalic - Eye Eye exam: Present: normal appearance - Neck Neck exam: Present: normal inspection, full ROM. Absent: tenderness - GI/Abdominal GI/Abdominal exam: Absent: tenderness - Extremities Exam Extremities exam: Present: other (TTP over the left anterior leary, TTP over the left anterior ankle and left medial malleolus, edema present, neurovascularly intact, pt has FROM of bilateral shoulders, no TTP of the bilateral shoulders, pt able to lift both arms above his head on his own with no difficulty ) - Neurological Exam Neurological exam: Present: alert - Skin Skin exam: Present: warm, dry, other (chronic vascular skin changes present on the bilateral shins) ED Course Vital Signs 11/25/18 11/25/18 11/25/18 16:13 18:34 20:12 Temperature 98.6 F 97.7 F Pulse Rate 110 H 102 H 96 H Respiratory 18 17 Rate Blood Pressure 126/77 150/84 158/82 O2 Sat by Pulse 98 100 97 Oximetry ED Medical Decision Making - Radiology Data Radiology results: report reviewed PROCEDURE: CT HEAD/BRAIN WO CON TECHNIQUE: Axial helical imaging from the skull base to the vertex. HISTORY: hx of dementia, fall at facility COMPARISONS: Head CT dated October 24, 2018 FINDINGS: Visualization of fine detail is somewhat limited by motion artifact. There is no definite evidence of an acute intracranial process. However, subtle areas of edema in portions of the brain could be missed due to motion artifact. There is no evidence of intracranial hemorrhage or significant mass effect. Ventricular size is concordant with the degree of atrophy. The visualized portions of the orbits, paranasal and mastoid sinuses are unremarkable. There is no definite evidence of acute fracture. There is deformity of the nasal bones bilaterally consistent with sequela of previous fractures similar in appearance to the previous study. IMPRESSION: 1. Study degraded by motion artifact. 2. No definite evidence of an acute intracranial process. However, subtle areas of edema could be missed due to motion artifact. 3. No definite evidence of acute fracture. This document is electronically signed by La Walton MD., November 25 2018 08:15:24 PM ET PROCEDURE: CT CERVICAL SPINE WO CON TECHNIQUE: Axial helical imaging through the cervical spine with sagittal and coronal reformatted images obtained. HISTORY: hx of dementia, fall at facility COMPARISONS: None FINDINGS: There is mild reversal of the normal lordotic curve of the cervical spine. The vertebral heights are maintained. There is loss of height of the disc spaces throughout the cervical spine from C2-C3 through C6-C7. There are anterior bridging osteophytes extending from C2 through C7. There is multiple level ossification of the posterior longitudinal ligament. There is multiple level degenerative facet change. There is multiple level bony canal and foraminal stenosis secondary to spondylitic change. Visualization of detail the contents of the cervical canal is limited by artifact. There is no definite evidence of fracture and no evidence of subluxation. The paraspinous soft tissues are unremarkable. There is deformity of the right shoulder with the appearance of dislocation of the humeral head relative to the glenoid. A fracture cannot be excluded. IMPRESSION: 1. No definite evidence of fracture and no evidence of subluxation of the cervical spine. 2. Cervical spondylosis with multiple level canal and foraminal stenosis. If the patient has persistent symptoms or if there is a clinical suspicion of cervical cord injury, MRI may be helpful for further evaluation. 3. Deformity right shoulder with the appearance of dislocation of the humeral head relative to the glenoid. A fracture cannot be excluded. If further imaging is required, dedicat ed plain film imaging of the right shoulder or CT may be helpful. This document is electronically signed by La Walton MD., November 25 2018 08:11:48 PM ET PROCEDURE: XR TIBIA FIBULA 2V LT TECHNIQUE: Left tibia and fibula, 2 views HISTORY: fall at facility, reported tib/fib fx COMPARISONS: None FINDINGS: Intact proximal tibia and fibula. Nondisplaced oblique fracture is noted in the diametaphyseal region of the distal fibula. No dislocation. Arterial calcification is compatible with atherosclerosis. Degenerative change at the knee and ankle. IMPRESSION: Nondisplaced distal fibular fracture This document is electronically signed by Uday Padilla MD., November 25 2018 06:26:07 PM ET Transcribed By: BAL Dictated By: UDAY PADILLA MD Electronically Authenticated By: UDAY PADILLA MD Signed Date/Time: 11/25/181827 - Medical Decision Making Pt is a 72 yo male with a hx of dementia/CVA brought in the ED from [facility] with c/o a fall that occurred over the weekend. The patient has a hx of dementia and is a poor historian. History provided by facility and EMS personnel. Pt is c/o left leary and left ankle pain. It is reported that pt had XRs completed which revealed a tib/fib fx. According to facility no LOC. XR of the tib/fib of the left leg reveals a non displaced distal fibula fx. CT of the head and neck were completed due to history of dementia and poor historian for the fall, CT of the head is normal, CT of the cervical spine No definite evidence of fracture and no evidence of subluxation of the cervical spine. Cervical spondylosis with multiple level canal and foraminal stenosis. Deformity right shoulder with the appearance of dislocation of the humeral head relative to the glenoid. Pt has a hx of a displaced right shoulder in 2014. Pt has no TTP of the shoulders, FROM of the bilateral shoulders, and is able to lift both of his arms above his head without difficulty, very unlikely for pt to have dis placed shoulder. Pt placed in ankle splint and advised no weight bearing. Will have pt follow up with Dr. Laguna, orthopedic SHIMA. Will have pt follow up with PCP in the next 2-3 days. Return to the ED for any new or worsening symptoms. - Differential Diagnosis fx, sprain, strain, dislocation Critical care attestation.: If time is entered above; I have spent that time in minutes in the direct care of this critically ill patient, excluding procedure time. ED Disposition Clinical Impression: Fall Qualifiers: Encounter type: initial encounter Qualified Code(s): W19.XXXA - Unspecified fall, initial encounter Fibula fracture Qualifiers: Encounter type: initial encounter Fibula location: distal Fracture type: closed Fracture morphology: unspecified fracture morphology Laterality: left Qualified Code(s): S82.832A - Other fracture of upper and lower end of left fibula, in itial encounter for closed fracture Disposition: DC- TO HOME OR SELFCARE Is pt being admited?: No Does the pt Need Aspirin: No Condition: Stable Instructions: Ankle Fracture (ED) Additional Instructions: Please follow up with Dr. Laguna, orthopedic as soon as possible. Please follow up with primary care doctor in the next 2-3 days. No weight bearing. May use ice and elevation. Use medication as needed. Return to the emergency room for any ne w or worsening symptoms. Prescriptions: Acetaminophen/Codeine [Tylenol /Codeine # 3 tab] 1 tab PO Q6H PRN #14 tab PRN Reason: Pain , Severe (7-10) Referrals: PRIMARY CAREMD [Primary Care Provider] - 2-3 Days PER LAGUNA MD [Staff Physician] - 2-3 Days Time of Disposition: 22:04 Print Language: CHINESE
--- NOTE | 2018-11-25 18:28 | XRay Report ---
PROCEDURE: XR TIBIA FIBULA 2V LT TECHNIQUE: Left tibia and fibula, 2 views HISTORY: fall at facility, reported tib/fib fx COMPARISONS: None FINDINGS: Intact proximal tibia and fibula. Nondisplaced oblique fracture is noted in the diametaphyseal region of the distal fibula. No dislocation. Arterial calcification is compatible with atherosclerosis. Degenerative change at the knee and ankle. IMPRESSION: Nondisplaced distal fibular fracture This document is electronically signed by Uday Padilla MD., November 25 2018 06:26:07 PM ET
--- NOTE | 2018-11-25 20:14 | Cat Scan Report ---
PROCEDURE: CT CERVICAL SPINE WO CON TECHNIQUE: Axial helical imaging through the cervical spine with sagittal and coronal reformatted im ages obtained. HISTORY: hx of dementia, fall at facility COMPARISONS: None FINDINGS: There is mild reversal of the normal lordotic curve of the cervical spine. The vertebral heights are maintained. There is loss of height of the disc spaces throughout the cervical spine from C2-C3 through C6-C7. There are anterior bridging osteophytes extending from C2 through C7. There is multiple level ossification of the posterior longitudinal ligament. There is multiple level degenerative facet change. There is multiple level bony canal and foraminal stenosis secondary to spondylitic change. Visualization of detail the contents of the cervical canal is limited by artifact. There is no definite evidence of fracture and no evidence of subluxation. The paraspinous soft tissues are unremarkable. There is deformity of the right shoulder with the appearance of dislocation of the humeral head relat nura to the glenoid. A fracture cannot be excluded. IMPRESSION: 1. No definite evidence of fracture and no evidence of subluxation of the cervical spine. 2. Cervical spondylosis with multiple level canal and foraminal stenosis. If the patient has persistent symptoms or if there is a clinical suspicion of cervical cord injury, M RI may be helpful for further evaluation. 3. Deformity right shoulder with the appearance of dislocation of the humeral head relative to the gl enoid. A fracture cannot be excluded. If further imaging is required, dedicated plain film imaging of the right shoulder or CT may be helpful. This document is electronically signed by La Walton MD., November 25 2018 08:11:48 PM ET
--- NOTE | 2018-11-25 20:17 | Cat Scan Report ---
PROCEDURE: CT HEAD/BRAIN WO CON TECHNIQUE: Axial helical imaging from the skull base to the vertex. HISTORY: hx of dementia, fall at facility COMPARISONS: Head CT dated October 24, 2018 FINDINGS: Visualization of fine detail is somewhat limited by motion artifact. There is no definite evidence of an acute intracranial process. However, subtle areas of edema in por tions of the brain could be missed due to motion artifact. There is no evidence of intracranial hemorrhage or significant mass effect. Ventricular size is concordant with the degree of atrophy. The visualized portions of the orbits, paranasal and mastoid sinuses are unremarkable. There is no definite evidence of acute fracture. There is deformity of the nasal bones bilaterally consistent with sequela of previous fractures simil ar in appearance to the previous study. IMPRESSION: 1. Study degraded by motion artifact. 2. No definite evidence of an acute intracranial process. However, subtle areas of edema could be mis sed due to motion artifact. 3. No definite evidence of acute fracture. This document is electronically signed by La Walton MD., November 25 2018 08:15:24 PM ET
[2018-11-26 06:01] VITALS: BP 155/85
== END 2018-11-26 05:58 | disposition home or self-care (01) ==
LOC: ED 16:09
DX: S82.832A Other fracture of upper and lower end of left fibula, initial encounter for closed fracture (principal); I10 Essential (primary) hypertension; E11.9 Type 2 diabetes mellitus without complications; K21.9 Gastro-esophageal reflux disease without esophagitis; N17.9 Acute kidney failure, unspecified; F03.90 Unspecified dementia, unspecified severity, without behavioral disturbance, psychotic disturbance, mood disturbance, and anxiety; Z86.73 Personal history of transient ischemic attack (TIA), and cerebral infarction without residual deficits; Z87.891 Personal history of nicotine dependence; Z79.899 Other long term (current) drug therapy; Z91.09 Other allergy status, other than to drugs and biological substances; W19.XXXA Unspecified fall, initial encounter; Y93.89 Activity, other specified; Y92.89 Other specified places as the place of occurrence of the external cause; Y99.8 Other external cause status
CPT/HCPCS: 70450; 72125